=== PATIENT | male | born 1950 | race African-American/Black ===

== ENCOUNTER 2019-07-01 22:17 | Emergency (ER) | payer MEDICARE ==
[~2019-07-01] VITALS: Ht 170.2 cm; Wt 110.2 kg
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
[2019-07-02 00:13] VITALS: BP 135/67
--- NOTE | 2019-07-02 00:14 | NUR ---
Patient discharged to home in stable conditon. Written and verbal after care instructions given. Patient verbalizes understanding of instructions.pt. home on private car under the care of his son.
== END 2019-07-02 00:17 | disposition home or self-care (01) ==
LOC: ER 22:17
DX: S16.1XXA Strain of muscle, fascia and tendon at neck level, initial encounter (principal); E11.9 Type 2 diabetes mellitus without complications; V43.52XA Car driver injured in collision with other type car in traffic accident, initial encounter; Y93.89 Activity, other specified; Y92.89 Other specified places as the place of occurrence of the external cause; Y99.8 Other external cause status
CPT/HCPCS: 71045; 72072; A4663